=== PATIENT | male | born 1970 | race Hispanic/Latino ===

== ENCOUNTER → 2023-08-15 09:05 | Outpatient (CLI) | payer OTHER, SELFPAY ==
[2023-08-15 10:11] LABS: Add Manual Diff / Slide Review NO; Basophils Absolute Auto 0 /uL (0-100); Basophils Percent Auto 0.5 % (0-2); Eosinophils Absolute Auto 300 /uL (0-450); Hematocrit 43.4 % (41-53); Hemoglobin 15.3 g/dL (13.5-17.5); Lymphocytes Absolute Auto 1700 /uL (1100-4500); Mean Corpuscular HGB Conc 35.2 % (30-36); Mean Corpuscular Hemoglobin 33.6 PG (26-34); Mean Corpuscular Volume 95.3 fL (80-100); Monocytes Absolute Auto 1000 /uL (0-900); Monocytes Percent Auto 14.4 % (3-14); Neutrophils Absolute Auto 3900 /uL (1500-7000); Neutrophils Percent Auto 57.1 % (50-75); Platelet Count 166 X10^3/uL (150-400); Red Blood Cell Count 4.55 X10^6/uL (4.5-5.9); Red Cell Distribution Width 13.8 % (11.6-14.8); White Blood Cell Count 6.9 X10^3/uL (4.5-11.0)
[2023-08-15 10:32] LABS: Alanine Aminotransferase 16 IU/L (<50); Albumin 4.3 g/dL (3.5-5.0); Albumin Globulin Ratio 1.3 (1.0-2.8); Alkaline Phosphatase 78 U/L (38-126); Aspartate Aminotransferase 27 IU/L (17-59); BUN Creatinine Ratio 14.4 (6-22); Bilirubin Total 0.6 mg/dL (0.2-1.3); Blood Urea Nitrogen 14 mg/dL (9-20); Calcium 9.5 mg/dL (8.4-10.2); Carbon Dioxide 28 mmol/L (22-32); Chloride 107 mmol/L (98-107); Cholesterol 166 mg/dL (140-199); Estimated Glomerular Filt Rate > 60 mL/min (>60); Globulin 3.2 g/dL (1.7-4.1); Glucose 109 mg/dL (70-100); HDL Cholesterol 69 mg/dL (40-60); HEMOLYSIS < 15 (0-50); LDL Cholesterol Calculated 65 mg/dL (<100); Sodium 138 mmol/L (137-145); Total Protein 7.5 g/dL (6.3-8.2); Triglycerides 160 mg/dL (35-150)
[2023-08-15 11:20] LABS: HIV 1 & 2 Ab/Ag 4th Gen Combo NEGATIVE (NEGATIVE); Hep C Virus Ab w/Reflex Quant NEGATIVE s/c (NEGATIVE)
== END ==
LOC: LAB 09:06
PROVIDERS: PCP Family Medicine; Referring Provider Family Medicine; Visit Provider Family Medicine
DX: Z11.59 Encounter for screening for other viral diseases (principal); Z11.4 Encounter for screening for human immunodeficiency virus [HIV]; I10 Essential (primary) hypertension; R53.82 Chronic fatigue, unspecified; R06.83 Snoring; Z78.9 Other specified health status
CPT/HCPCS: 36415; 80053; 80061; 85025; 86803; 87389

== ENCOUNTER → 2023-08-24 06:56 | Outpatient (CLI) | payer OTHER, SELFPAY | LOC: LAB 06:57 | PROVIDERS: PCP Family Medicine; Referring Provider Family Medicine; Visit Provider Family Medicine | DX: Z12.11 Encounter for screening for malignant neoplasm of colon (principal) | CPT/HCPCS: 82274 ==